=== PATIENT | male | born 1985 | race Caucasian/White ===

== ENCOUNTER 2021-08-03 14:18 | Outpatient (REF) | payer MEDICAID, SELFPAY | END 2021-08-03 14:19 | disposition home or self-care (01) | LOC: HO.LAB 14:18 | PROVIDERS: Visit Provider Internal Medicine | DX: Z13.89 Encounter for screening for other disorder (principal) ==

== ENCOUNTER 2023-02-09 10:46 | Emergency (ER) | payer OTHER, MEDICAID, SELFPAY ==
[2023-02-09 11:03] VITALS: BP 100/60; PULSE 61; RESP 17; TEMP 36.4; O2SAT 98; BMI 18.3
--- NOTE | 2023-02-09 11:06 | ED.PSYCH ---
HPI - Psych General Chief Complaint: Psychiatric Symptoms Stated Complaint: crisis depressed anxiety Time Seen by Provider: 02/09/23 13:21 Source: patient Mode of arrival: ambulatory Limitations: no limitations History of Present Illness HPI Narrative: 37-year-old male came in for evaluation of depression, insomnia, hearing voices telling him to do bad things, patient is vague about SI or HI. No CP, SOB, abdominal pain, nausea, or vomiting. Related Data Allergies Allergy/AdvReac Type Severity Reaction Status Date / Time No Known Allergies Allergy Unverified 04/21/20 19:22 [No Known Allergies*] Review of Systems Review of Systems: All other systems are reviewed and are negative Constitutional: Reports as per HPI and Reports no additional constitutional complaints Eyes: Reports as per HPI and Reports no additional eye complaints Reports system reviewed and no additional complaints, except as documented Cardiovascular: Reports as per HPI and Reports no additional cardiovascular complaints Respiratory: Reports as per HPI and Reports no additional respiratory complaints Gastrointestinal: Reports as per HPI and Reports no additional gastrointestinal complaints Genitourinary: Reports no additional female genitourinary complaints Musculoskeletal: Reports no additional musculoskeletal complaints Skin/Breast: Reports system reviewed and no additional complaints, except as docu Psychiatric: Reports no additional psychiatric complaints Endocrine: Reports no additional endocrine complaints Hematologic/Lymphatic: Reports no additional hematologic/lymphatic complaints Allergic/Immunologic: Reports no additional allergic/immunologic complaints Reports system reviewed and no additional complaints, except as documented and Reports Abnormal speech present [facility] Social History Social History Alcohol intake: never Smoked in Last 30 Days: Yes Use of substances other than those prescribed or required for medical reasons: No Substance Use Type: Heroin Substance Use Frequency Other:: last use 3 yrs ago on methadone now no sx w/d. Advance Directives: No Advance Directives Information Provided: Yes Healthcare Proxy: No Guardian: No Physical Exam Vital Signs: Vital Signs: Last Vital Signs Temp 98.1 F 02/09/23 11:26 Pulse 58 02/09/23 11:26 Resp 16 02/09/23 11:26 BP 110/63 02/09/23 11:26 Pulse Ox 97 02/09/23 11:26 O2 Del Method Room Air 02/09/23 11:26 BMI result Body Mass Index 18.3 Vital signs have been reviewed as appeared to be correct. Blood pressure normal. Heart rate normal. Respiration rate normal. Temperature normal. Oxygen saturation normal. Appearance: Alert. Oriented X3. No acute distress. Head: Normal external exam. Normocephalic. Atraumatic. No Sadler signs noted. No raccoon eyes noted Eyes: PERRLA. EOMI. Conjunctiva and sclera normal. Eyelids normal. ENT: TM's Normal. Pharynx normal. Uvula midline. Moist mucous membranes. No trismus noted. No drooling noted. No muffled voice noted. Neck: Normal inspection. Neck supple. FROM. No adenopathy. Thyroid Normal. No meningeal signs. No neck mass noted. CVS: Normal heart rate and rhythm. Heart sound normal. No murmurs noted. Pulses normal throughout. Respiratory: No respiratory distress. Painless inspiration. Breath sounds normal. No wheezes/rales/rhonchi noted. Chest nontender. No accessory muscle usage noted or decreased air movement noted. Abdomen: Soft and nontender. Bowel sounds normal in all 4 quadrants. No distention noted. No organomegaly noted. No visible injury noted. Back: No CVA tenderness. Full range of motion noted. Skin: Skin warm and dry. Normal skin color. Normal skin turgor. No rashes/lesions/lacerations noted. Extremities: No lower extremity edema. Extremities exhibit normal range of motion. Extremities nontender. Neuro: Oriented X 3. Cranial nerve exam: II-XII are grossly intact No motor deficit. No sensory deficit. Reflexes within normal. Patient Orientation: Person, Place, Time and Situation, okay hygiene and grooming. Fair eye contact, attentive, no tics or tremors. Level of Consciousness: Awake, Appropriate and Alert Patient Behavior: Appropriate, Guarded, Cooperative and Anxious Mood Description: Constricted, Blunted and Apprehensive Affect Description: Constricted, Blunted and Apprehensive Patient Cognition Impaired: No Ability to Follow Directions: Excellent Speech Pattern: Clear, Appropriate and Spontaneous Speech, nonpressured, spontaneous with regular rate and rhythm, normal volume and prosody. No dysarthria. Memory Description: Intact, Immediate Intact and Short Term Intact Hallucinations: None Delusions: Not Present Thought Process: Intact Thought Content: positive for Intact, positive for Logical, denies Suicidal Ideation and denies Homicidal Ideation. Depressive Symptoms: Not present. Judgement and Insight: Limited but adequate. Course Course Course Narrative: RME: 37yo M w/PMHx anxiety, depression c/o AH, depression, SI and HI x3 days. states he is hearing voices telling him to do crazy things . stopped meds 3yrs ago Labs, [place], CARE consult ordered Full HPI, ROS and PE to be performed by primary ED provider. Reevaluation(s) Reevaluation #1: Patient is home, no events overnight, VSS, patient is not under Section 12 await for psych consultation patient want to go denies SI I had a conversation with the patient patient is willing to stay on the sees psychiatrist in the ED. Time: 07:21 Reevaluation #2: Patient is AAO x3, denies SI/HI patient is going to be a father and he is very excited about that, no AHV feels safe to be discharged with his girlfriend. Time: 11:48 Medications Administered Discontinued Medications Generic Name Dose Route Start Last Admin Trade Name Carlosq PRN Reason Stop Dose Admin Diphenhydramine HCl 50 mg 02/09/23 20:06 02/09/23 21:09 Diphenhydramine Hcl 50 Mg/Ml Vial IM 02/09/23 20:07 Not Given ONCE ONE Haloperidol Lactate 5 mg 02/09/23 20:06 02/09/23 21:09 Haloperidol Lactate 5 Mg/Ml Vial IM 02/09/23 20:07 Not Given ONCE ONE Lorazepam 2 mg 02/09/23 20:06 02/09/23 21:09 Lorazepam 2 Mg/Ml Vial IM 02/09/23 20:07 Not Given STAT STA Methadone HCl 30 mg 02/10/23 07:20 02/10/23 07:34 Methadone Hcl 20 Mg/2 Ml Oral.Conc PO 02/10/23 07:21 30 mg ONCE ONE Administration Medical Decision Making Differential Diagnosis Differential Diagnoses: The differential diagnosis associated with the presentation includes (Depression, acute psychosis, SI, HI, electrolyte abnormalities, severe anemia, substance abuse.) Admission/Observation Consideration of admission/observation: Escalation of care including admission/observation considered Lab Data MDM Lab Attestation statement: I reviewed the patient's lab results. 02/09/23 11:41 02/09/23 11:41 Labs: Lab Results 02/09/23 02/09/23 02/09/23 Range/Units 11:41 11:41 11:41 WBC 4.6 L (4.8-10.8) X10*3/uL RBC 4.34 L (4.60-5.80) X10*6/uL Hgb 13.2 L (14.0-18.0) g/dl Hct 39.0 L (42.0-52.0) % MCV 89.9 (80.0-98.0) fL MCH 30.4 (27.0-33.0) pg MCHC 33.8 (31.0-36.0) g/dl RDW 12.4 (11.0-16.0) % Plt Count 150 L (160-400) X10*3/uL MPV 9.8 (9.4-12.4) fL Immature Gran % (Auto) 0.2 (0.0-0.4) % Neut % (Auto) 45.7 (45-73) % Lymph % (Auto) 39.9 (20-40) % Hartley % (Auto) 12.2 H (2-11) % Eos % (Auto) 1.3 (0-4) % Baso % (Auto) 0.7 (0-2) % Lymph # (Auto) 1.8 (1.2-4.9) X10*3/uL Hartley # (Auto) 0.6 (0.1-1.2) X10*3/uL Eos # (Auto) 0.1 (0.0-0.4) X10*3/uL Baso # (Auto) 0.0 (0.0-0.2) X10*3/uL Abs Immat Gran (auto) 0.01 (0.00-0.03) X10*3/uL Absolute Neuts (auto) 2.1 (2.0-8.3) x10*3/uL Absolute Nucleated RBC 0.000 (0.0-0.012) X10*3/uL Nucleated RBC % (auto) 0.0 (0.0-0.2) /100WBC Sodium 138 (135-145) mmol/L Potassium 4.4 (3.3-5.1) mmol/L Chloride 107 (96-108) mmol/L Carbon Dioxide 24 (22-29) mmol/L Anion Gap 11 L (12-20) BUN 10 (9-16) mg/dL Creatinine 0.76 (0.5-1.4) mg/dL Estim Creat Clear Calc 108.0 Estimated GFR > 60 Random Glucose 86 (60-115) mg/dL Calcium 9.1 (8.4-10.2) mg/dL Total Bilirubin 0.3 (0.0-1.0) mg/dL AST 39 H (5-37) U/L ALT 67 H (0-40) U/L Alkaline Phosphatase 71 (39-117) U/L Total Protein 6.5 (6.5-8.0) g/dL Albumin 3.8 (3.5-5.0) g/dL Urine Opiates Screen (Not Detect) Urine Fentanyl Screen (Not Detect) Ur Barbiturates Screen (Not Detect) Ur Phencyclidine Scrn (Not Detect) Ur Amphetamines Screen (Not Detect) U Benzodiazepines Scrn (Not Detect) Urine Cocaine Screen (Not Detect) U Marijuana (THC) Screen (Not Detect) Ethyl Alcohol < 10 mg/dL COVID-19 (LONI) Negative (Negative) COVID-19 Clin Com See Note 02/09/23 Range/Units 11:41 WBC (4.8-10.8) X10*3/uL RBC (4.60-5.80) X10*6/uL Hgb (14.0-18.0) g/dl Hct (42.0-52.0) % MCV (80.0-98.0) fL MCH (27.0-33.0) pg MCHC (31.0-36.0) g/dl RDW (11.0-16.0) % Plt Count (160-400) X10*3/uL MPV (9.4-12.4) fL Immature Gran % (Auto) (0.0-0.4) % Neut % (Auto) (45-73) % Lymph % (Auto) (20-40) % Hartley % (Auto) (2-11) % Eos % (Auto) (0-4) % Baso % (Auto) (0-2) % Lymph # (Auto) (1.2-4.9) X10*3/uL Hartley # (Auto) (0.1-1.2) X10*3/uL Eos # (Auto) (0.0-0.4) X10*3/uL Baso # (Auto) (0.0-0.2) X10*3/uL Abs Immat Gran (auto) (0.00-0.03) X10*3/uL Absolute Neuts (auto) (2.0-8.3) x10*3/uL Absolute Nucleated RBC (0.0-0.012) X10*3/uL Nucleated RBC % (auto) (0.0-0.2) /100WBC Sodium (135-145) mmol/L Potassium (3.3-5.1) mmol/L Chloride (96-108) mmol/L Carbon Dioxide (22-29) mmol/L Anion Gap (12-20) BUN (9-16) mg/dL Creatinine (0.5-1.4) mg/dL Estim Creat Clear Calc Estimated GFR Random Glucose (60-115) mg/dL Calcium (8.4-10.2) mg/dL Total Bilirubin (0.0-1.0) mg/dL AST (5-37) U/L ALT (0-40) U/L Alkaline Phosphatase (39-117) U/L Total Protein (6.5-8.0) g/dL Albumin (3.5-5.0) g/dL Urine Opiates Screen Not Detected (Not Detect) Urine Fentanyl Screen Not Detected (Not Detect) Ur Barbiturates Screen Not Detected (Not Detect) Ur Phencyclidine Scrn Not Detected (Not Detect) Ur Amphetamines Screen Not Detected (Not Detect) U Benzodiazepines Scrn Not Detected (Not Detect) Urine Cocaine Screen Not Detected (Not Detect) U Marijuana (THC) Screen POSITIVE H (Not Detect) Ethyl Alcohol mg/dL COVID-19 (LONI) (Negative) COVID-19 Clin Com Discharge Plan Discharge Clinical Impression: Depression Patient Disposition: Home, Self-Care Instructions: Depression (ED) Stand Alone Forms: Work/School Release Interventions: [place]-Suicide Risk Severity Scale Last Done: 02/09/23 20:00 ED Discharge Assessment Last Done: 02/10/23 11:57 Discharge Date/Time: 02/10/23 11:59
[2023-02-09 11:26] VITALS: BP 110/63; PULSE 58; RESP 16; TEMP 36.7; O2SAT 97
--- NOTE | 2023-02-09 12:50 | PC.NURSE ---
aox4. calm, coopeartive. no acute respiratory distress. resting. 1:[address] safety checks complete. belonging sheet in computer and in paper chart. security searched pt.
--- NOTE | 2023-02-09 20:00 | PC.NURSE ---
Pt came out of his room, asking when he will be seen, stating he would have been better if he stayed at home. Pt demanding to speak with someone. Pt has been seen by CARE team, is on a section 12, and is an active bed search. Gonzales from CARE Team aware.
--- NOTE | 2023-02-09 20:44 | PC.NURSE ---
Pt became upset while talking to care team and came out of his room, throwing a chair, slamming doors, yelling, and flailing. Security and charge nurse were called to the bedside. Pt was deescalated and sat back down in bed. It was explained to the pt that he will be here until the morning. Pt is requesting to leave, denying SI/HI, is A&Ox4, GCS 15. Pt is resting in bed at this time. IM medications were requested per RN. Medications were not needed, but remain drawn up, in case the pt acts up again.
--- NOTE | 2023-02-09 20:55 | MHC.CARE ---
CARE Team was asked by the [facility] to see this pt due to him becoming aggravated that he was not allowed to leave. Pt asked t/w when he can go home, and t/w informed the pt that he is on a section 12 and that he is not allowed to leave until an [facility] bed was found. The pt started to get loud saying that he has bills and that he needs to go to work tomorrow. Pt was informed that he would be seen by the CARE Team tomorrow and the disposition might change, but he is here for the night. This set the pt off causing him to throw a trash can, and then to throw a weighted chair. (this chair was consumer experience consultant than it should have been. chair was removed from the unit) Security was called and a B52 was ordered but ultimately did not need to be administered at this time. Pt was requesting to speak to an MD and Dr. Lopez came and talked with him. Dr. Lopez assured him that he would be reassessed in the morning by the CARE Team and could be released after that. This calmed the pt and he laid in his bed and asked for a blanket.
--- NOTE | 2023-02-10 03:23 | PC.NURSE ---
Addendum entered by Kristy Mahmood RN 02/10/23 03:27: Attempted to call clinic to verify dose, got sent to voicemail. Clinic opens at 6:00 AM. [facility] at [address] [place] [address] in [place] Original Note: Pt came up to nurse's station stating he needs his methadone and returned back to his bed. Pt states he goes to [facility] in [place] for his methadone. Pt did not give his dose. Pt was offered PO medications, he declined and asked staff to leave him alone.
--- NOTE | 2023-02-10 06:02 | PC.NURSE ---
Attempted to call methadone clinic to verify dose, no answer.
--- NOTE | 2023-02-11 16:33 | MHC.CARE ---
Called pt, he reports he followed with [facility], made ?some calls? and will be meeting with a therapists 1x weekly moving forward. He reports he is feeling better today and was thankful for phone call.
== END 2023-02-10 11:59 | disposition home or self-care (01) ==
PROVIDERS: Emergency Provider Emergency Medicine
DX: F32.A Depression, unspecified (principal); Z20.822 Contact with and (suspected) exposure to COVID-19
CPT/HCPCS: 80053; 80307; 85025; 87635; 99285; S9485

== ENCOUNTER 2023-04-15 12:14 | Outpatient (REF) | payer MEDICAID, SELFPAY ==
[2023-04-15 13:14] LABS: MANUAL DIFF FLAG NO
[2023-04-15 13:37] LABS: Basophils Percent Auto 0.6 % (0-2); Eosinophils Absolute Auto 0.1 X10*3/uL (0.0-0.4); Eosinophils Percent Auto 0.9 % (0-4); Hematocrit 39.9 % (42.0-52.0); Hemoglobin 13.1 g/dl (14.0-18.0); Imm Gran Abs Auto 0.01 X10*3/uL (0.00-0.03); Imm Gran Pct Auto 0.2 % (0.0-0.4); Lymphocytes Percent Auto 36.7 % (20-40); Mean Corpuscular HGB Conc 32.8 g/dl (31.0-36.0); Mean Corpuscular Hemoglobin 29.8 pg (27.0-33.0); Mean Corpuscular Volume 90.9 fL (80.0-98.0); Mean Platelet Volume 10.5 fL (9.4-12.4); Monocytes Absolute Auto 0.6 X10*3/uL (0.1-1.2); Monocytes Percent Auto 10.5 % (2-11); Neutrophils Absolute Auto 2.8 x10*3/uL (2.0-8.3); Neutrophils Percent Auto 51.1 % (45-73); Platelet Count 197 X10*3/uL (160-400); Red Blood Count 4.39 X10*6/uL (4.60-5.80); Red Cell Distribution Width 13.3 % (11.0-16.0); White Blood Count 5.4 X10*3/uL (4.8-10.8)
[2023-04-15 14:03] LABS: Anion Gap 9 (12-20); Blood Urea Nitrogen 10 mg/dL (9-16); Calcium 9.4 mg/dL (8.4-10.2); Carbon Dioxide 27 mmol/L (22-29); Chloride 107 mmol/L (96-108); Estimated Glomerular Filt Rate > 60; Glucose Random 90 mg/dL (60-115); Potassium 4.3 mmol/L (3.3-5.1); Sodium 139 mmol/L (135-145)
[2023-04-15 14:23] LABS: Vitamin B12 651 pg/mL (200-900)
== END 2023-04-15 12:15 | disposition home or self-care (01) ==
LOC: HO.HHCL 12:14
PROVIDERS: Visit Provider Internal Medicine
DX: R20.2 Paresthesia of skin (principal)
CPT/HCPCS: 36415; 80048; 82550; 82607; 84443; 85025